=== PATIENT | female | born 1955 | race Caucasian/White ===

== ENCOUNTER → 2017-12-16 07:59 | Outpatient (CLI) | payer OTHER, SELFPAY ==
--- NOTE | 2017-12-16 | DI.RAD.S_ITS ---
PROCEDURE: FL BARIUM ENEMA W AIR CONTRAST INDICATIONS: INCOMPLETE COLONOSCOPY COMPARISON: None. 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 No suspicious abdominal calcifications. Visualized solid organ contours are normal in size. Minimal degenerative changes of the lumbar spine noted. Colon: There is adequate air-contrast opacification from the rectum to the cecum, with contrast refluxing into the terminal ileum. The colon demonstrates redundancy with multiple loops and a winding course in the abdomen and pelvis. No significant strictures, ulcers, polyps, or masses are seen. Haustral folds are normal in thickness throughout. Minimal diverticula. IMPRESSION: Barium opacifies the rectum through the terminal ileum, with no obstructive colonic mass or stricture identified. Dictated by: Armaan Azul M.D. on 12/16/2017 at 10:28 Approved by: Armaan Azul M.D. on 12/16/2017 at 10:49
== END ==
PROVIDERS: Visit Provider Internal Medicine
DX: Z12.11 Encounter for screening for malignant neoplasm of colon (principal)
CPT/HCPCS: 74280